=== PATIENT | female | born 1945 | race Caucasian/White ===

== ENCOUNTER 2017-03-26 10:45 | Emergency (ER) | payer OTHER, MEDICARE ==
[2017-03-26 11:03] VITALS: BP 155/80
[2017-03-26] MEDS ORDERED: Sodium Chloride 0.9% 10 ML Syringe FLUSH PRN ×2 (11:31→12:57)
[2017-03-26] MEDS ORDERED: Albuterol 0.083% 2.5 MG/3 ML Neb Soln NEB ONE (11:31)
[2017-03-26] MEDS ORDERED: Sodium Chloride 0.9% 1,000 ML IV ONE (11:32)
--- NOTE | 2017-03-26 11:38 | EDM.PDOC ---
ED HPI GENERAL MEDICAL PROBLEM - General Chief Complaint: Respiratory Problem Stated Complaint: COUGH AND FEVER Time Seen by Provider: 03/26/17 11:22 Source of Information: Reports: Patient History Limitations: Reports: No Limitations - History of Present Illness INITIAL COMMENTS - FREE TEXT/NARRATIVE: Patient is a 71-year-old female presents ED complaining of headache, sinus congestion, postnasal drip, and productive cough with fever for the past week. Patientstates symptoms have progressively worsened. Appetite and fluid intake has been poor. She has been mildly short of breath with coughing fits. She denies any recent sick exposure. Denies any nausea/vomiting, chest pain, abdominal pain, dysuria. She does become mildly dizzy with standing but notes non-syncopal or presyncopal episodes. Patient does smoke one pack per day. She has been utilizing [id number] cough and flu medications with minimal relief. Onset Date: 03/19/17 Duration: Constant, Getting Worse, Waxing/Waning Associated Symptoms: Reports: cough w sputum, Fever/Chills, Loss of Appetite, Malaise, Shortness of Breath. 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 (see below) (See HPI) Left Chest Pain Score (Numeric/FACES): 5 - Related Data Allergies Allergy/AdvReac Type Severity Reaction Status Date / Time banana Allergy Anaphylactic Verified 03/26/17 11:03 Shock coconut Allergy Anaphylactic Verified 03/26/17 11:03 Shock pregabalin [From Lyrica] Allergy Rash Verified 03/26/17 11:03 Home Meds: Home Meds Aspirin 1 tab PO DAILY 03/26/17 [History] Benzonatate [Tessalon Perles] 100 mg PO BID PRN #20 cap 03/26/17 [Rx] Levofloxacin 500 mg PO QAM #10 tablet 03/26/17 [Rx] Lisinopril 5 mg PO DAILY 03/26/17 [History] Prednisone [IMW: predniSONE] 40 mg PO WITHBREAKFAST #10 tab 03/26/17 [Rx] Propranolol [Inderal LA] 60 mg PO DAILY 03/26/17 [History] Rosuvastatin [Crestor] 10 mg PO DAILY 03/26/17 [History] Past Medical History Cardiovascular History: Reports: High Cholesterol, Hypertension Musculoskeletal History: Reports: Other (See Below) Other Musculoskeletal History: 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 Neurological History: Reports: Parkinson's, Other (See Below) Other Neuro History: fibromyalgia Hematologic History: Reports: Other (See Below) Other Hematologic History: vitamin d deficiency Social & Family History - Tobacco Use Smoking Status *Q: Current Every Day Smoker Years of Tobacco use: 12 Packs/Tins Daily: 1 - Caffeine Use Caffeine Use: Reports: Coffee - Alcohol Use Days Per Week of Alcohol Use: 7 Number of Drinks Per Day: 3 Total Drinks Per Week: 21 - Recreational Drug Use Recreational Drug Use: No ED ROS GENERAL - Review of Systems Review Of Systems: See Below Constitutional: Reports: Fever, Chills, Malaise, Weakness, Decreased Appetite HEENT: Reports: Rhinitis, Sinus Problem Respiratory: Reports: Shortness of Breath, Cough, Sputum. Denies: Pleuritic Chest Pain, Hemoptysis Cardiovascular: Reports: Dyspnea on Exertion. Denies: Chest Pain, Palpitations GI/Abdominal: Reports: Decreased Appetite. Denies: Abdominal Pain, Diarrhea, Nausea, Vomiting : Denies: Dysuria Musculoskeletal: Denies: Muscle Pain Neurological: Reports: Dizziness, Headache ED EXAM, GENERAL - Physical Exam Exam: See Below Exam Limited By: No Limitations General Appearance: Alert, WD/WN, No Apparent Distress, Cachetic Eye Exam: Bilateral Eye: PERRL Ears: Hearing Grossly Normal Nose: Normal Inspection Throat/Mouth: Normal Oropharynx, Normal Voice Head: Atraumatic, Normocephalic Neck: Normal Inspection, Supple, Non-Tender, Full Range of Motion. No: Lymphadenopathy (L), Lymphadenopathy (R) Respiratory/Chest: No Respiratory Distress, No Accessory Muscle Use, Chest Non- Tender, Rhonchi (Throughout), Wheezing (Throughout) Cardiovascular: Normal Peripheral Pulses, Regular Rate, Rhythm Peripheral Pulses: 2+: Radial (L), Radial (R) GI/Abdominal: Normal Bowel Sounds, Soft, Non-Tender, No Organomegaly, No Mass Extremities: Normal Inspection Neurological: Alert, Oriented, CN II-XII Intact, Normal Cognition Psychiatric: Normal Affect, Normal Mood Skin Exam: Warm, Dry, Intact, Normal Color Course - Vital Signs Last Recorded V/S: Last Vital Signs Temp 98.7 F 03/26/17 10:58 Pulse 123 H 03/26/17 10:58 Resp 20 03/26/17 10:58 BP 155/80 H 03/26/17 10:58 Pulse Ox 97 03/26/17 12:01 - Orders/Labs/Meds Orders: Active Orders 24 hr Category Date Time Status Peripheral IV Care [RC] . DIRECTED Care 03/26/17 11:31 Active RT Aerosol Therapy [RC] ASDIRECTED Care 03/26/17 11:31 Active Chest 2V [CR] Stat Exams 03/26/17 11:31 Taken Chest w Cont [CT] Stat Exams 03/26/17 12:28 Taken Sodium Chloride 0.9% [Saline Flush] Med 03/26/17 11:31 Active 10 ml FLUSH ASDIRECTED PRN Sodium Chloride 0.9% [Saline Flush] Med 03/26/17 12:57 Active 10 ml FLUSH ONETIME PRN Peripheral IV Insertion Adult [OM.PC] Stat Oth 03/26/17 11:31 Ordered Medication Orders Sodium Chloride (Saline Flush) 10 ml FLUSH ASDIRECTED PRN PRN Reason: Keep Vein Open Last Admin: 03/26/17 12:10 Dose: 10 ml Sodium Chloride (Saline Flush) 10 ml FLUSH ONETIME PRN PRN Reason: IV FLUSH Last Admin: 03/26/17 13:33 Dose: 10 ml Labs: Laboratory Tests 03/26/17 03/26/17 Range/Units 11:53 11:53 WBC 12.54 H (3.98-10.04) K/mm3 RBC 3.72 L (3.98-5.22) M/mm3 Hgb 12.9 (11.2-15.7) gm/L Hct 37.0 (34.1-44.9) % MCV 99.5 H (79.4-94.8) fl MCH 34.7 H (25.6-32.2) pg MCHC 34.9 (32.2-35.5) g/dl RDW Std Deviation 46.3 (36.4-46.3) fL Plt Count 296 (182-369) K/mm3 MPV 9.8 (9.4-12.3) fl Neut % (Auto) 64.0 (34.0-71.1) % Lymph % (Auto) 20.9 (19.3-51.7) % [place] % (Auto) 10.1 (4.7-12.5) % Eos % (Auto) 1.0 (0.7-5.8) Baso % (Auto) 3.0 H (0.1-1.2) % Neut # (Auto) 8.03 H (1.56-6.13) K/mm3 Lymph # (Auto) 2.62 (1.18-3.74) K/mm3 [place] # (Auto) 1.27 H (0.24-0.36) K/mm3 Eos # (Auto) 0.12 (0.04-0.36) K/mm3 Baso # (Auto) 0.37 H (0.01-0.08) K/mm3 Manual Slide Review Abnormal smear Sodium 127 L (136-145) mEq/L Potassium 3.5 (3.5-5.1) mEq/L Chloride 88 L (98-107) mEq/L Carbon Dioxide 27 (21-32) mEq/L Anion Gap 15.5 H (5-15) BUN 8 (7-18) mg/dL Creatinine 0.7 (0.55-1.02) mg/dL Est Cr Clr Drug Dosing 54.37 mL/min Estimated GFR (MDRD) > 60 (>60) mL/min BUN/Creatinine Ratio 11.4 L (14-18) Glucose 84 (83-115) mg/dL Calcium 8.7 (8.5-10.1) mg/dL Total Bilirubin 0.5 (0.2-1.0) mg/dL AST 22 (15-37) U/L ALT 17 (14-59) U/L Alkaline Phosphatase 116 (46-116) U/L C-Reactive Protein 22.7 H* (<1.0) mg/dL Total Protein 7.6 (6.4-8.2) g/dl Albumin 2.7 L (3.4-5.0) g/dl Globulin 4.9 gm/dL Albumin/Globulin Ratio 0.6 L (1-2) Meds: Medications Generic Name Dose Route Start Last Admin Trade Name Freq PRN Reason Stop Dose Admin Sodium Chloride 10 ml 03/26/17 11:31 03/26/17 12:10 Saline Flush FLUSH 10 ml ASDIRECTED PRN Administration Keep Vein Open Sodium Chloride 10 ml 03/26/17 12:57 03/26/17 13:33 Saline Flush FLUSH 10 ml ONETIME PRN Administration IV FLUSH Discontinued Medications Generic Name Dose Route Start Last Admin Trade Name Laurence PRN Reason Stop Dose Admin Albuterol 2.5 mg 03/26/17 11:31 03/26/17 12:01 Proventil Neb Soln NEB 03/26/17 11:32 2.5 mg ONETIME ONE Administration Sodium Chloride 1,000 mls @ 999 mls/hr 03/26/17 11:32 03/26/17 12:10 Normal Saline IV 03/26/17 12:32 999 mls/hr ONETIME ONE Administration Iopamidol 100 ml 03/26/17 12:57 03/26/17 13:33 Isovue-300 (61%) IVPUSH 03/26/17 12:58 60 ml ONETIME ONE Administration Levofloxacin 500 mg 03/26/17 13:07 03/26/17 13:14 Levaquin PO 03/26/17 13:08 500 mg ONETIME ONE Administration Prednisone 40 mg 03/26/17 13:05 03/26/17 13:14 Prednisone PO 03/26/17 13:06 40 mg ONETIME ONE Administration - Re-Assessments/Exams Free Text/Narrative Re-Assessment/Exam: Peripheral IV with normal saline [id number] albuterol and Atrovent times one. Initial labs and studies include CBC, chem 14, CRP, and chest x-ray. 03/26/17 12:29 Labs reviewed:sodium 127, potassium 3.5, creatinine 0.7, CRP22.7, white blood cell count 12.5, neutrophil percent is 64, neutrophil number a 0.03, hemoglobin 12.9. CXR reviewed: hyperinflation with multiple lung nodules which appear to be small granulomas. Patient is a long-time smoker thus we'll get a CT with IV contrast. 03/26/17 13:07 Prednisone 40 mg p.o. and levofloxacin 500 mg p.o. patient history COPD and is concerned about Pseudomonas infection. 03/26/17 13:09 03/26/17 14:22 Awaiting results of the CT study of the chest. 03/26/17 14:28 CT study of the chest impression small left pleural effusion. Lingular pneumonia. Impacted small airways bilaterally, most likely infectious in etiology. Followup recommended. Discussed lab results and CT chest with patient and family. They're wishing to be discharged home and not admitted to the hospital. Discharge instructions as documented with prescriptions as provided. Per CURB 65 score patient is low risk group, 2.7% 30 day mortality. Departure - Departure Time of Disposition: 14:40 Disposition: Home, Self-Care 01 Condition: good Clinical Impression: COPD with exacerbation, Lingular pneumonia - Discharge Information Prescriptions: Benzonatate [Tessalon Perles] 100 mg PO BID PRN #20 cap PRN Reason: Cough Levofloxacin 500 mg PO QAM #10 tablet Prednisone [IMW: predniSONE] 40 mg PO WITHBREAKFAST #10 tab Instructions: Upper Respiratory Infection, Adult, [id number], Chronic Obstructive Pulmonary Disease Exacerbation, [id number], Acute Bronchitis, Easy -to-Read, Shortness of Breath, [id number] Referrals: Vinita Wheatley MD [Primary Care Provider] - 2 Days Forms: ED Department Discharge Additional Instructions: As discussed CT of the chest revealed you have lingula pneumonia. Treatment is albuterol inhaler one to 2 puffs every 4 hours as needed for shortness of breath /cough, prednisone 40 mg every a.m. for 5 days, Levaquin 500 mg every a.m. for 10 days, and Tessalon Perles 100 mg twice a day for cough. Push the fluids. Ensure adequate rest. Can utilize mucinex 600 mg twice a day for 10 days. Followup with primary care provider this coming Tuesday/Tuesday for reevaluation. Return back to the ED if you experience any new or worsening symptoms as discussed. - My Orders Last 24 Hours: My Active Orders 03/26/17 11:31 Peripheral IV Care [RC] . DIRECTED RT Aerosol Therapy [RC] ASDIRECTED Chest 2V [CR] Stat Sodium Chloride 0.9% [Saline Flush] 10 ml FLUSH ASDIRECTED PRN Peripheral IV Insertion Adult [OM.PC] Stat 03/26/17 12:28 Chest w Cont [CT] Stat 03/26/17 12:57 Sodium Chloride 0.9% [Saline Flush] 10 ml FLUSH ONETIME PRN - Assessment/Plan Last 24 Hours: My Active Orders 03/26/17 11:31 Peripheral IV Care [RC] . DIRECTED RT Aerosol Therapy [RC] ASDIRECTED Chest 2V [CR] Stat Sodium Chloride 0.9% [Saline Flush] 10 ml FLUSH ASDIRECTED PRN Peripheral IV Insertion Adult [OM.PC] Stat 03/26/17 12:28 Chest w Cont [CT] Stat 03/26/17 12:57 Sodium Chloride 0.9% [Saline Flush] 10 ml FLUSH ONETIME PRN
[2017-03-26] MEDS ORDERED: Iopamidol 612 MG/ML 100 ML Bottle IVPUSH ONE (12:57)
[2017-03-26] MEDS ORDERED: predniSONE 20 MG Tab PO ONE (13:05)
[2017-03-26] MEDS ORDERED: Levofloxacin 250 MG Tab PO ONE (13:07)
--- NOTE | 2017-03-28 08:03 | CT ---
CT chest Technique: Multiple axial sections were obtained from above the lung apices inferiorly through the lung bases. Intravenous contrast was utilized. Comparison: Previous chest x-ray performed earlier on 03/26/17. Findings: Multiple low density nodules are identified within the thyroid gland. Small left sided pleural effusion is seen. Calcified granulomas are seen within both lungs. Mild atelectasis is seen adjacent to the pleural effusion within the left lung base. Parenchymal density is seen adjacent to the right minor fissure and adjacent to the pleural margin within the right middle lobe. Minimal area of pneumonia is possible. Parenchymal density is noted within the lingula possibly due to small area of additional pneumonia. Other minimal parenchymal densities noted within the superior segment right lower lung as well as several areas within the right upper lung. Visualized upper abdominal structures are within normal limits. Atherosclerotic change is noted within the aorta as well as mild coronary artery calcification. Mediastinum and hilar regions show no adenopathy or mass. No axillary adenopathy is seen. Slight emphysematous change is present. Bone window settings were reviewed showing slight degenerative change throughout the spine. Impression: 1. Small left-sided pleural effusion. 2. Small parenchymal infiltrates within both lungs possibly infectious in etiology. Recommend treatment as a pneumonia and recommend follow-up noncontrast chest CT in 2 months to make sure findings resolve. 3. Incidental calcified granulomas. 4. Multiple low density nodules within both lobes of the thyroid gland. Findings most likely due to multinodular goiter. Diagnostic code #3 I agree with preliminary report issued by [employer] ([facility] report finalized on 03/26/17, 3:27 PM Central Time)
--- NOTE | 2017-03-28 08:03 | CR ---
Chest: Two views of the chest were obtained. Comparison: No previous study. Mild increased density noted within the lingula. Lungs otherwise are clear but hyperinflated. Several nodules are seen within the chest compatible with granulomas. Heart size and mediastinum are normal. Previous cervical spine surgery is seen. Impression: 1. Increased density within the lingula most likely representing small area of pneumonia. 2. Emphysematous change and scattered granulomas. Diagnostic code #3
== END 2017-03-26 14:48 | disposition home or self-care (01) ==
LOC: JD.ED 10:45
DX: J18.9 Pneumonia, unspecified organism (principal); J44.1 Chronic obstructive pulmonary disease with (acute) exacerbation; I10 Essential (primary) hypertension; E78.00 Pure hypercholesterolemia, unspecified; G20 Parkinson's disease; F17.210 Nicotine dependence, cigarettes, uncomplicated; Z79.82 Long term (current) use of aspirin; Z79.899 Other long term (current) drug therapy; Z88.8 Allergy status to other drugs, medicaments and biological substances; Z91.018 Allergy to other foods
CPT/HCPCS: 36415; 71020; 71260; 80053; 85025; 86140; 94664; 96360; 99284; A9270; J7040; J7050; Q9967

== ENCOUNTER 2018-04-28 09:06 | Emergency (ER) | payer MEDICARE, OTHER ==
[2018-04-28 09:19] VITALS: BP 182/83
--- NOTE | 2018-04-28 09:56 | EDM.PDOC ---
ED HPI GENERAL MEDICAL PROBLEM - General Chief Complaint: Upper Extremity Injury/Pain Stated Complaint: SHOULDER AND BACK INJURY Time Seen by Provider: 04/28/18 09:39 Source of Information: Reports: Patient, Family (Daughter) History Limitations: Reports: No Limitations - History of Present Illness INITIAL COMMENTS - FREE TEXT/NARRATIVE: The patient states that she fell at home on the evening of 04/26/2018. She states that her legs just gave out. She landed on a carpet and was not injured, but on the morning of 04/27/2018, she developed right deltoid pain. Last night she felt pain in her right scapula. She applied a [place] 4% transdermal patch, which she states has not helped much. She also took 400 mg of ibuprofen last night, but none since. The patient states that she has had right shoulder pain in the past, although has not previously had a medical evaluation of it. The patient's daughter states that the patient falls a lot, related to possible Parkinson disease. The patient's PCP is Dr. Vinita Wheatley, who has not been contacted about this issue. Right Shoulder Pain Score (Numeric/FACES): 9 - Related Data Allergies Allergy/AdvReac Type Severity Reaction Status Date / Time banana Allergy Anaphylactic Verified 12/23/17 13:59 Shock coconut Allergy Anaphylactic Verified 12/23/17 13:59 Shock minocycline [From Minocin] Allergy Rash Verified 12/23/17 13:59 pregabalin [From Lyrica] Allergy Rash Verified 12/23/17 13:59 rosuvastatin Allergy Cannot Verified 12/23/17 13:59 Remember Home Meds: Home Meds Aspirin 81 mg PO DAILY 03/26/17 [History] Gabapentin [Neurontin] 300 mg PO BEDTIME 12/23/17 [History] Ibuprofen 200 mg PO ASDIRECTED PRN 12/23/17 [History] Melatonin 3 mg PO BEDTIME PRN 12/23/17 [History] OLANZapine [ZyPREXA] 5 mg PO BEDTIME 12/23/17 [History] Orphenadrine [Norflex] 1 tab PO Q12H PRN #14 tab.er 04/28/18 [Rx] Past Medical History Cardiovascular History: Reports: High Cholesterol, Hypertension Gastrointestinal History: Reports: Colon Polyp Genitourinary History: Reports: Acute Renal Failure, Urinary Incontinence ( stress incontinence) Musculoskeletal History: Reports: Arthritis Neurological History: Reports: Neuropathy, Peripheral, Parkinson's (suspected) Psychiatric History: Reports: Depression (untreated), Other (See Below) ( Fibromyalgia, Chronic pain) Endocrine/Metabolic History: Reports: Osteopenia, Vitamin D Deficiency Hematologic History: Reports: Anemia Oncologic (Cancer) History: Reports: Uterine - Past Surgical History HEENT Surgical History: Reports: Cataract Surgery, Oral Surgery GI Surgical History: Reports: Appendectomy, Colonoscopy, EGD, Other (See Below) (Hemorrhoidectomy) Female Surgical History: Reports: D&C (x 1), Hysterectomy, Salpingo- Oophorectomy Neurological Surgical History: Reports: C-Spine (ACDF C5-C7), Lumbar Spine ( fusion) Social & Family History - Tobacco Use Smoking Status *Q: Current Every Day Smoker Years of Tobacco use: 60 Packs/Tins Daily: 1 Packs/Tins Daily Comment: Down from 3 ppd - Caffeine Use Caffeine Use: Reports: Coffee - Alcohol Use Alcohol Use History: Yes Alcohol Use Frequency: Socially - Recreational Drug Use Recreational Drug Use: No - Living Situation & Occupation Living situation: Reports: , with Family (Daughter) Occupation: Retired Review of Systems - Review of Systems Review Of Systems: ROS reveals no pertinent complaints other than HPI. GI/Abdominal: Reports: Diarrhea (chronic) ED EXAM, GENERAL - Physical Exam Exam: See Below Exam Limited By: No Limitations General Appearance: Alert, WD/WN, No Apparent Distress Eye Exam: Bilateral Eye: EOMI, Normal Inspection Ears: Normal External Exam Nose: Normal Inspection Throat/Mouth: Normal Inspection, Normal Lips, Normal Voice, No Airway Compromise Head: Atraumatic, Normocephalic Neck: Normal Inspection, Full Range of Motion Respiratory/Chest: No Respiratory Distress, Lungs Clear, Normal Breath Sounds, No Accessory Muscle Use Cardiovascular: Normal Peripheral Pulses, Regular Rate, Rhythm, No Gallop, No JVD, No Murmur, No Rub Peripheral Pulses: 4+: Radial (L), Radial (R) GI/Abdominal: Normal Bowel Sounds, Soft, Non-Tender, No Organomegaly, No Distention, No Abnormal Bruit, No Mass (Female) Exam: Deferred Rectal (Female) Exam: Deferred Back Exam: Normal Inspection, Full Range of Motion, NT Extremities: Other (No visible abnormality to the patient's right shoulder, such as swelling, erythema, ecchymosis or abrasion. The patient reports tenderness to palpation to the entire shoulder - anterior, superior, posterior, and lateral. She reports pain in her right scapula with attempts at flexion, extension, external rotation and internal rotation of the right upper extremity against resistance, although no significant pain with attempts at abduction or adduction against resistance. The patient is able to raise her right upper extremity above her head on her own.) Neurological: Alert, Oriented, Normal Cognition, No Motor/Sensory Deficits Psychiatric: Normal Affect Skin Exam: Warm, Dry, Intact, Normal Color, No Rash Course - Vital Signs Last Recorded V/S: Last Vital Signs Temp 36.3 C 04/28/18 09:13 Pulse 97 04/28/18 09:13 Resp 13 04/28/18 09:13 BP 182/83 H 04/28/18 09:13 Pulse Ox 98 04/28/18 09:13 - Orders/Labs/Meds Meds: Medications Discontinued Medications Generic Name Dose Route Start Last Admin Trade Name Freq PRN Reason Stop Dose Admin Orphenadrine Citrate 100 mg 04/28/18 10:31 04/28/18 10:42 Norflex PO 04/28/18 10:32 100 mg ONETIME STA Administration - Re-Assessments/Exams Free Text/Narrative Re-Assessment/Exam: 04/28/18 10:26 3-view radiographs of the right shoulder appear to be grossly unremarkable. No fracture identified. Formal read per the Radiologist pending. 2-view radiographs of the right scapula appear to be grossly unremarkable. No fracture identified. Formal read per the Radiologist pending. 04/28/18 10:32 X-ray results discussed with the patient and her daughter. I have ordered a single dose of Norflex, and will discharge the patient home with a 7-day prescription. I would like the patient to continue to take ibuprofen 400-600 mg every 8 hours with food. I am recommending that the patient perform passive range of motion of the right shoulder, and I will refer her to Dr. Christensen. Departure - Departure Time of Disposition: 10:33 Disposition: Home, Self-Care 01 Condition: Good Clinical Impression: Right shoulder pain - Discharge Information Prescriptions: Orphenadrine [Norflex] 1 tab PO Q12H PRN #14 tab.er PRN Reason: Muscle Spasm Instructions: Shoulder Pain Referrals: Vinita Wheatley MD [Primary Care Provider] - Mode Christensen MD [Physician] - Forms: ED Department Discharge Additional Instructions: You were seen in the emergency room for right shoulder pain, after falling at home on 04/26/2018. Workup in the ER included x-rays of your right shoulder and right scapula, which returned unremarkable. There are no broken bones or dislocations. Based on your history and physical examination, you have likely strained a muscle in the shoulder, however, it is also possible that you have a tendinous or ligamentous injury. You have been started on the muscle relaxant Norflex. A prescription for Norflex has been sent to the [facility], located in the [facility] grocery store. Take one tablet every 12 hours, as prescribed. Continue to take [id number] ibuprofen, 2-3 tablets (400-600 mg) every 8 hours, with food, as needed for pain. It is important that you not let your shoulder stay immobile. Perform passive range of motion, as was treated in the ER, by leaning forward, letting her arm pain, then swinging it with your body weight. Alternatively, you can perform "wall walking" with your hand, or have your daughter move your arm around while you relax your muscles. Follow-up with the Orthopedic Surgeon Dr. Christensen at the next available appointment. If any other problems, please do not hesitate to return to the ER.
[2018-04-28] MEDS ORDERED: Orphenadrine 100 MG Tab.ER PO STA (10:31)
--- NOTE | 2018-05-01 09:26 | CR ---
Scapula: Two views of the scapula were obtained. Small calcification is seen off the inferior glenoid which is felt to be incidental. No acute fracture or other bony abnormality is seen. Impression: 1. Incidental finding. Right scapula study is otherwise unremarkable. Diagnostic code #2
--- NOTE | 2018-05-01 11:15 | CR ---
Right shoulder: Three views of the right shoulder were obtained. Comparison: No prior shoulder exam. Acromioclavicular and glenohumeral joints appear within normal limits. Previous cervical spine surgery is noted. No acute fracture or dislocation is seen. Bony structures are slightly osteopenic. Impression: 1. Prior cervical spine surgery. 2. Nothing acute is seen on three-view right shoulder study. Diagnostic code #2
== END 2018-04-28 10:58 | disposition home or self-care (01) ==
LOC: JD.ED 09:06
DX: M25.511 Pain in right shoulder (principal); E78.00 Pure hypercholesterolemia, unspecified; I10 Essential (primary) hypertension; F17.210 Nicotine dependence, cigarettes, uncomplicated; Z91.018 Allergy to other foods; Z88.1 Allergy status to other antibiotic agents; Z88.8 Allergy status to other drugs, medicaments and biological substances; Z79.82 Long term (current) use of aspirin; Z79.899 Other long term (current) drug therapy
CPT/HCPCS: 73010; 73030; 99283; A9270

== ENCOUNTER 2018-06-26 09:10 | Emergency (ER) | payer MEDICARE, OTHER ==
[2018-06-26] MEDS ORDERED: HYDROmorphone 0.5 MG/0.5 ML SYRINGE IVPUSH ONE (10:04)
[2018-06-26] MEDS ORDERED: Sodium Chloride 0.9% 10 ML Syringe FLUSH PRN (10:04)
[2018-06-26] MEDS ORDERED: methylPREDNISolone Sodium Succinate 125 MG/2 ML SDV IVPUSH ONE (10:04)
--- NOTE | 2018-06-26 11:04 | EDM.PDOC ---
ED HPI GENERAL MEDICAL PROBLEM - General Chief Complaint: Lower Extremity Injury/Pain Stated Complaint: RIGHT HIP PAIN Time Seen by Provider: 06/26/18 09:54 Source of Information: Reports: Patient, Family History Limitations: Reports: No Limitations - History of Present Illness INITIAL COMMENTS - FREE TEXT/NARRATIVE: The patient presents with right hip pain. This has been bothering her for months. She says the past 3 days have been much worse. She has had 3 surgeries on her back but this pain is different. She has fallen before but not recently. She did not hurt her hip when she did fall. She has no other complaints such as fever, chills, cough, chest pain, shortness of breath, abdominal pain, nausea or vomiting. Onset: Gradual Duration: Day(s): (3) Location: Reports: Lower Extremity, Right (hip) Quality: Reports: Sharp Severity: Severe Improves with: Reports: Immobilization Worsens with: Reports: Movement Associated Symptoms: Reports: No Other Symptoms Right Hip Pain Score (Numeric/FACES): 10 - Related Data Allergies Allergy/AdvReac Type Severity Reaction Status Date / Time banana Allergy Anaphylactic Verified 06/26/18 09:36 Shock coconut Allergy Anaphylactic Verified 06/26/18 09:36 Shock minocycline [From Minocin] Allergy Rash Verified 06/26/18 09:36 pregabalin [From Lyrica] Allergy Rash Verified 06/26/18 09:36 rosuvastatin Allergy Cannot Verified 06/26/18 09:36 Remember Home Meds: Home Meds Aspirin 81 mg PO DAILY 03/26/17 [History] Gabapentin [Neurontin] 300 mg PO BEDTIME 12/23/17 [History] Ibuprofen 200 mg PO ASDIRECTED PRN 12/23/17 [History] Melatonin 3 mg PO BEDTIME PRN 12/23/17 [History] OLANZapine [ZyPREXA] 5 mg PO BEDTIME 12/23/17 [History] Orphenadrine [Norflex] 1 tab PO Q12H PRN #14 tab.er 04/28/18 [Rx] Hydrocodone/Acetaminophen [Hydrocodon-Acetaminophen 5-325] 1 - 2 each PO Q6HR PRN #20 tablet 06/26/18 [Rx] Past Medical History HEENT History: 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 Cardiovascular History: Reports: High Cholesterol, Hypertension Other Cardiovascular History: palpitations Respiratory History: Reports: COPD Gastrointestinal History: Reports: Colon Polyp Other Gastrointestinal History: hematochezia, rectal bleeding, gastroenteritis Genitourinary History: Reports: Acute Renal Failure, Urinary Incontinence Other Genitourinary History: acute kidney injury 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: 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 Musculoskeletal History: Reports: Arthritis Other Musculoskeletal History: 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, chronic pain Neurological History: Reports: Neuropathy, Peripheral, Parkinson's Other Neuro History: syncope, parkinsons tremor, lumbar back surgery, c5-c7 fusion Psychiatric History: Reports: Depression, Other (See Below) Endocrine/Metabolic History: Reports: Osteopenia, Vitamin D Deficiency Other Endocrine/Metabolic History: vitamin b deficiency Hematologic History: Reports: Anemia Other Hematologic History: vitamin d deficiency Immunologic History: 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 Oncologic (Cancer) History: Reports: Uterine Dermatologic History: 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 - Past Surgical History Head Surgeries/Procedures: 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 HEENT Surgical History: Reports: Cataract Surgery, Oral Surgery Respiratory Surgical History: 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 GI Surgical History: Reports: Appendectomy, Colonoscopy, EGD, Other (See Below) Female Surgical History: Reports: D&C, Hysterectomy, Salpingo-Oophorectomy Neurological Surgical History: Reports: C-Spine, Lumbar Spine Dermatological Surgical History: 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 Social & Family History - Tobacco Use Smoking Status *Q: Current Every Day Smoker Years of Tobacco use: 60 Packs/Tins Daily: 1 - Caffeine Use Caffeine Use: Reports: Coffee - Alcohol Use Days Per Week of Alcohol Use: 7 Number of Drinks Per Day: 2 Total Drinks Per Week: 14 - Recreational Drug Use Recreational Drug Use: No - Living Situation & Occupation Living situation: Reports: , with Family (Daughter) Occupation: Retired Review of Systems - Review of Systems Review Of Systems: See Below Constitutional: Reports: No Symptoms Eyes: Reports: No Symptoms Ears: Reports: No Symptoms Nose: Reports: No Symptoms Mouth/Throat: Reports: No Symptoms Respiratory: Reports: No Symptoms Cardiovascular: Reports: No Symptoms GI/Abdominal: Reports: No Symptoms Genitourinary: Reports: No Symptoms Musculoskeletal: Reports: Other (Right hip pain) Skin: Reports: No Symptoms ED EXAM, GENERAL - Physical Exam Exam: See Below Exam Limited By: No Limitations General Appearance: Alert, No Apparent Distress Ears: Normal External Exam Nose: Normal Inspection Head: Atraumatic, Normocephalic Neck: Normal Inspection Respiratory/Chest: No Respiratory Distress, Lungs Clear, Normal Breath Sounds Cardiovascular: Regular Rate, Rhythm, No Edema, No Murmur GI/Abdominal: Soft, Non-Tender, No Organomegaly, No Mass Back Exam: Normal Inspection Extremities: Other (Right hip pain upon palpation. Good sensation and pulses distally. Pain with internal and external rotation.) Course - Vital Signs Last Recorded V/S: Last Vital Signs Temp 98.5 F 06/26/18 09:34 Pulse 120 H 06/26/18 09:34 Resp 18 06/26/18 09:34 BP 164/83 H 06/26/18 09:34 Pulse Ox 92 L 06/26/18 09:34 - Orders/Labs/Meds Orders: Active Orders 24 hr Category Date Time Status Peripheral IV Care [RC] . DIRECTED Care 06/26/18 10:04 Active Hip Min 2V or 3V w Pelvis Rt [CR] Stat Exams 06/26/18 10:05 Taken Sodium Chloride 0.9% [Saline Flush] Med 06/26/18 10:04 Active 10 ml FLUSH ASDIRECTED PRN Peripheral IV Insertion Adult [OM.PC] Routine Oth 06/26/18 10:04 Ordered Medication Orders Sodium Chloride (Saline Flush) 10 ml FLUSH ASDIRECTED PRN PRN Reason: Keep Vein Open Last Admin: 06/26/18 10:40 Dose: 10 ml Meds: Medications Generic Name Dose Route Start Last Admin Trade Name Freq PRN Reason Stop Dose Admin Sodium Chloride 10 ml 06/26/18 10:04 06/26/18 10:40 Saline Flush FLUSH 10 ml ASDIRECTED PRN Administration Keep Vein Open Discontinued Medications Generic Name Dose Route Start Last Admin Trade Name Freq PRN Reason Stop Dose Admin Hydromorphone HCl 0.5 mg 06/26/18 10:04 06/26/18 10:35 Dilaudid IVPUSH 06/26/18 10:05 0.5 mg ONETIME ONE Administration Methylprednisolone Sodium Succinate 125 mg 06/26/18 10:04 06/26/18 10:38 Solu-Medrol IVPUSH 06/26/18 10:05 125 mg ONETIME ONE Administration - Re-Assessments/Exams Free Text/Narrative Re-Assessment/Exam: 06/26/18 11:03 I ordered an IV saline lock, dilaudid 0.5mg IV, solu-medrol 125mg IV, and an x- ray of her hip. The x-ray shows some arthritis. 06/26/18 11:10 I will discharge her home and have her follow up with Dr Christensen. Departure - Departure Time of Disposition: 11:10 Disposition: Home, Self-Care 01 Condition: Good Clinical Impression: Right hip pain Osteoarthritis of right hip Qualifiers: Osteoarthritis type: primary Qualified Code(s): M16.11 - Unilateral primary osteoarthritis, right hip - Discharge Information *PRESCRIPTION DRUG MONITORING PROGRAM REVIEWED*: No *COPY OF PRESCRIPTION DRUG MONITORING REPORT IN PATIENT [place]: No Prescriptions: Hydrocodone/Acetaminophen [Hydrocodon-Acetaminophen 5-325] 1 - 2 each PO Q6HR PRN #20 tablet PRN Reason: Pain Referrals: Vinita Wheatley MD [Primary Care Provider] - Mode Christensen MD [Physician] - 2 Weeks Forms: ED Department Discharge Additional Instructions: Take your medicine as prescribed. You may also try a hydrocodone for pain. Follow up with Dr Christensen our orthopedic surgeon. Please return if you are worse. - My Orders Last 24 Hours: My Active Orders 06/26/18 10:04 Peripheral IV Care [RC] . DIRECTED Sodium Chloride 0.9% [Saline Flush] 10 ml FLUSH ASDIRECTED PRN Peripheral IV Insertion Adult [OM.PC] Routine 06/26/18 10:05 Hip Min 2V or 3V w Pelvis Rt [CR] Stat - Assessment/Plan Last 24 Hours: My Active Orders 06/26/18 10:04 Peripheral IV Care [RC] . DIRECTED Sodium Chloride 0.9% [Saline Flush] 10 ml FLUSH ASDIRECTED PRN Peripheral IV Insertion Adult [OM.PC] Routine 06/26/18 10:05 Hip Min 2V or 3V w Pelvis Rt [CR] Stat
[2018-06-26 11:24] VITALS: BP 153/79
--- NOTE | 2018-06-27 12:33 | CR ---
Pelvis and right hip: AP view of the pelvis was obtained as well as AP and frog-leg lateral views of the right hip. Comparison: No previous study. Joint spaces within both hips are maintained. Joint space narrowing is seen within the right sacroiliac joint. Previous lower lumbar spine surgery is noted. Small calcification is noted above the greater trochanter of the right hip which is incidental. No fracture or other bony abnormality is seen. Impression: 1. Joint space narrowing within the right sacroiliac joint. 2. Other incidental findings. Diagnostic code #2
== END 2018-06-26 11:25 | disposition home or self-care (01) ==
LOC: JD.ED 09:10
DX: M16.11 Unilateral primary osteoarthritis, right hip (principal); F17.210 Nicotine dependence, cigarettes, uncomplicated; I10 Essential (primary) hypertension; E78.00 Pure hypercholesterolemia, unspecified; F32.9 Major depressive disorder, single episode, unspecified; Z79.82 Long term (current) use of aspirin; Z79.899 Other long term (current) drug therapy; Z91.018 Allergy to other foods; Z88.8 Allergy status to other drugs, medicaments and biological substances
CPT/HCPCS: 73502; 96374; 96375; 99284; J1170; J2930; J7050

== ENCOUNTER 2018-10-24 11:42 | Emergency (ER) | payer MEDICARE, OTHER ==
[2018-10-24 12:00] VITALS: BP 133/64
[2018-10-24] MEDS ORDERED: Ketorolac 30 MG/ML SDV IM ONE (12:20)
--- NOTE | 2018-10-24 12:25 | EDM.PDOC ---
ED HPI GENERAL MEDICAL PROBLEM - General Chief Complaint: Flank Pain Stated Complaint: L SIDE PAIN DUE TO FALL Time Seen by Provider: 10/24/18 11:59 Source of Information: Reports: Patient, RN Notes Reviewed History Limitations: Reports: No Limitations - History of Present Illness INITIAL COMMENTS - FREE TEXT/NARRATIVE: Patient is a 73 year old female who presents to the ED for the evaluation of left sided rib/flank pain after 2 falls last night. She states that she fell at 2200 and 2330 last night. She does use a cane and walker for ambulation. She states that she fell and hit her left side, which resulted in the pain she is experiencing. She has a history of rib fractures in the past. She does think she hit her head, but did not have any LOC or headache. She is not on blood thinners. She states that her pain is a 10/10. This worsens with movement, coughing and deep breathing. She has not taken any medications prior to help relieve this pain. Left Chest Pain Score (Numeric/FACES): 10 - Related Data Allergies Allergy/AdvReac Type Severity Reaction Status Date / Time banana Allergy Anaphylactic Verified 10/24/18 12:01 Shock coconut Allergy Anaphylactic Verified 10/24/18 12:01 Shock minocycline [From Minocin] Allergy Rash Verified 10/24/18 12:01 pregabalin [From Lyrica] Allergy Rash Verified 10/24/18 12:01 rosuvastatin Allergy Cannot Verified 10/24/18 12:01 Remember Home Meds: Home Meds Aspirin 81 mg PO DAILY 03/26/17 [History] Gabapentin [Neurontin] 900 mg PO BEDTIME 12/23/17 [History] Ibuprofen 200 mg PO ASDIRECTED PRN 12/23/17 [History] Melatonin 3 mg PO BEDTIME PRN 12/23/17 [History] OLANZapine [ZyPREXA] 5 mg PO BEDTIME 12/23/17 [History] Folic Acid 1 mg PO DAILY 10/24/18 [History] Lisinopril 5 mg PO DAILY 10/24/18 [History] Simvastatin 10 mg PO DAILY 10/24/18 [History] clonazePAM [Clonazepam] 1 mg PO BEDTIME PRN 10/24/18 [History] Past Medical History HEENT History: 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 Cardiovascular History: Reports: High Cholesterol, Hypertension Other Cardiovascular History: palpitations Respiratory History: Reports: COPD Gastrointestinal History: Reports: Colon Polyp Other Gastrointestinal History: hematochezia, rectal bleeding, gastroenteritis Genitourinary History: Reports: Acute Renal Failure, Urinary Incontinence Other Genitourinary History: acute kidney injury [employer] History: 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 Musculoskeletal History: Reports: Arthritis Other Musculoskeletal History: 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, chronic pain Neurological History: Reports: Neuropathy, Peripheral, Parkinson's Other Neuro History: syncope, parkinsons tremor, lumbar back surgery, c5-c7 fusion Psychiatric History: Reports: Depression, Other (See Below) Endocrine/Metabolic History: Reports: Osteopenia, Vitamin D Deficiency Other Endocrine/Metabolic History: vitamin b deficiency Hematologic History: Reports: Anemia Other Hematologic History: vitamin d deficiency Immunologic History: 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 Oncologic (Cancer) History: Reports: Uterine Dermatologic History: 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 - Past Surgical History Head Surgeries/Procedures: 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 HEENT Surgical History: Reports: Cataract Surgery, Oral Surgery Respiratory Surgical History: 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 GI Surgical History: Reports: Appendectomy, Colonoscopy, EGD, Other (See Below) Female Surgical History: Reports: D&C, Hysterectomy, Salpingo-Oophorectomy Neurological Surgical History: Reports: C-Spine, Lumbar Spine Dermatological Surgical History: 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 Social & Family History - Caffeine Use Caffeine Use: Reports: Coffee - Living Situation & Occupation Living situation: Reports: , with Family (Daughter) Occupation: Retired ED ROS GENERAL - Review of Systems Review Of Systems: See Below Constitutional: Reports: No Symptoms HEENT: Reports: No Symptoms Respiratory: Reports: Other (pain with deep breath) Cardiovascular: Reports: Chest Pain (with deep breath) Endocrine: Reports: No Symptoms GI/Abdominal: Reports: No Symptoms : Reports: No Symptoms Musculoskeletal: Reports: Other (left upper flank pain). Denies: Neck Pain, Back Pain Skin: Reports: No Symptoms Neurological: Reports: No Symptoms Psychiatric: Reports: No Symptoms Hematologic/Lymphatic: Reports: No Symptoms Immunologic: Reports: No Symptoms ED EXAM, GENERAL - Physical Exam Exam: See Below Exam Limited By: No Limitations General Appearance: Alert, WD/WN, No Apparent Distress Ears: Normal External Exam, Normal TMs Nose: Normal Inspection Throat/Mouth: Normal Inspection, Normal Oropharynx, No Airway Compromise Head: Atraumatic, Normocephalic, Facial Tenderness (left forehead tenderness) Neck: Normal Inspection, Supple, Non-Tender, Full Range of Motion Respiratory/Chest: No Respiratory Distress, Lungs Clear, Normal Breath Sounds, No Accessory Muscle Use, Chest Non-Tender Cardiovascular: Normal Peripheral Pulses, Regular Rate, Rhythm, No Murmur GI/Abdominal: Normal Bowel Sounds, Soft, Non-Tender, No Organomegaly, No Distention, No Mass Back Exam: Normal Inspection, Full Range of Motion Extremities: Normal Inspection, Normal Range of Motion, Normal Capillary Refill Neurological: Alert, Oriented, Normal Cognition, Normal Gait, Normal Reflexes, No Motor/Sensory Deficits Psychiatric: Normal Affect, Normal Mood Skin Exam: Warm, Dry, Intact, Normal Color, No Rash Course - Vital Signs Last Recorded V/S: Last Vital Signs Temp 98.3 F 10/24/18 11:56 Pulse 68 10/24/18 11:56 Resp 18 10/24/18 11:56 BP 133/64 10/24/18 11:56 Pulse Ox 92 L 10/24/18 11:56 - Orders/Labs/Meds Orders: Active Orders 24 hr Category Date Time Status Incentive Spirometry [RT Incentive Spirometry] [RC] Care 10/24/18 13:32 Ordered Q1HWA Meds: Medications Discontinued Medications Generic Name Dose Route Start Last Admin Trade Name Freq PRN Reason Stop Dose Admin Ketorolac Tromethamine 30 mg 10/24/18 12:20 10/24/18 12:29 Toradol IM 10/24/18 12:21 30 mg ONETIME ONE Administration - Radiology Interpretation Free Text/Narrative:: CT chest Technique: Multiple axial sections through the chest were obtained. Intravenous contrast was not utilized. Comparison: Prior chest CT of 03/26/17. Findings: Small portion of the visualized upper abdominal structures appear within normal limits. No pericardial thickening is seen. Mild coronary artery calcification is noted. Atherosclerotic calcification is seen within the thoracic aorta. No mediastinal adenopathy is seen. No hilar abnormalities are appreciated. Slight apical blebs are seen. Small nodule is identified within the anterior right upper lung measuring about 2.3 mm in size. This is believed to be present on previous CT study in retrospect and is felt to be stable. Calcified nodule is noted within the right lung base compatible with granuloma measuring 4.5 mm which is stable. Additional calcified nodule is noted within the left lung base measuring 6 mm. 2 calcified nodules are noted within the superior segment of the left lower lung measuring 4 mm and 3 mm. No additional nodule is seen. Lungs otherwise are clear. No pulmonary contusion or pleural effusions are seen. No pneumothorax is seen. Bone window settings were reviewed in bone window setting shows no discrete acute rib fracture. Minimal rib deformity is seen within several ribs on both sides compatible with old healed fractures. Scattered degenerative change within the thoracic spine is seen. Nothing acute is seen within the thoracic spine. Impression: 1. Findings compatible with scattered old healed rib fractures. No acute rib fracture is seen. 2. Multiple calcified nodules compatible with granulomas. Noncalcified 2.3 mm nodule within the right upper lung most likely representing additional granuloma which is not calcified. This is felt to be present on previous chest CT in retrospect and therefore incidental. 3. Other incidental findings. Nothing acute is appreciated. - Re-Assessments/Exams Free Text/Narrative Re-Assessment/Exam: 10/24/18 12:24 Pt presents to the ED for the evaluation of left sided chest/flank pain after fall x2. CT chest without contrast has been ordered for further evaluation of possible broken ribs with 30mg IM toradol for pain relief to start with. 10/24/18 13:26 CT is done and no acute rib fracture or left upper abdominal abnormality is appreciated. Pt was re-assessed at bedside and the toradol did provide good pain relief, she states her pain is now a 7/10. Pt will be given an Incentive spirometer and has been instructed on it's use. Have recommended NSAID therapy with ice/heat therapy. Departure - Departure Time of Disposition: 13:28 Disposition: Home, Self-Care 01 Condition: Fair Clinical Impression: Rib pain on left side - Discharge Information *PRESCRIPTION DRUG MONITORING PROGRAM REVIEWED*: No *COPY OF PRESCRIPTION DRUG MONITORING REPORT IN PATIENT [place]: No Instructions: Chest Wall Pain, [id number] Referrals: Vinita Wheatley MD [Primary Care Provider] - Forms: ED Department Discharge Additional Instructions: You have been evaluated in the ED for your left sided rib/flank pain Your CT demonstrated no acute rib fracture or left upper abdominal contusions/ injury. It did demonstrate multiple calcified small nodules that were present on comparison with a prior CT. These are compatible with granulomas. Please use ice as tolerated to the affected area. Please use the incentive spirometer 10 times / hour to promote deep breathing and prevent pneumonia. You may take tylenol 500 mg / ibuprofen 600mg q6 hrs for pain relief. Please do so until you have a tolerable level of pain with activity. Do not exceed 4000mg tylenol in one day. Do not exceed 3200mg ibuprofen in one day. You may use aleve 2 tabs every 12 hours as needed for pain if you should desire to use aleve. Please return to ED if your symptoms should change or worsen. - My Orders Last 24 Hours: My Active Orders 10/24/18 13:32 Incentive Spirometry [RT Incentive Spirometry] [RC] Q1HWA - Assessment/Plan Last 24 Hours: My Active Orders 10/24/18 13:32 Incentive Spirometry [RT Incentive Spirometry] [RC] Q1HWA
--- NOTE | 2018-10-24 13:12 | CT ---
CT chest Technique: Multiple axial sections through the chest were obtained. Intravenous contrast was not utilized. Comparison: Prior chest CT of 03/26/17. Findings: Small portion of the visualized upper abdominal structures appear within normal limits. No pericardial thickening is seen. Mild coronary artery calcification is noted. Atherosclerotic calcification is seen within the thoracic aorta. No mediastinal adenopathy is seen. No hilar abnormalities are appreciated. Slight apical blebs are seen. Small nodule is identified within the anterior right upper lung measuring about 2.3 mm in size. This is believed to be present on previous CT study in retrospect and is felt to be stable. Calcified nodule is noted within the right lung base compatible with granuloma measuring 4.5 mm which is stable. Additional calcified nodule is noted within the left lung base measuring 6 mm. 2 calcified nodules are noted within the superior segment of the left lower lung measuring 4 mm and 3 mm. No additional nodule is seen. Lungs otherwise are clear. No pulmonary contusion or pleural effusions are seen. No pneumothorax is seen. Bone window settings were reviewed in bone window setting shows no discrete acute rib fracture. Minimal rib deformity is seen within several ribs on both sides compatible with old healed fractures. Scattered degenerative change within the thoracic spine is seen. Nothing acute is seen within the thoracic spine. Impression: 1. Findings compatible with scattered old healed rib fractures. No acute rib fracture is seen. 2. Multiple calcified nodules compatible with granulomas. Noncalcified 2.3 mm nodule within the right upper lung most likely representing additional granuloma which is not calcified. This is felt to be present on previous chest CT in retrospect and therefore incidental. 3. Other incidental findings. Nothing acute is appreciated. Diagnostic code #2
== END 2018-10-24 14:00 | disposition home or self-care (01) ==
LOC: JD.ED 11:42
DX: R07.81 Pleurodynia (principal); E78.00 Pure hypercholesterolemia, unspecified; I10 Essential (primary) hypertension; J44.9 Chronic obstructive pulmonary disease, unspecified; F32.9 Major depressive disorder, single episode, unspecified; F17.210 Nicotine dependence, cigarettes, uncomplicated; Z91.018 Allergy to other foods; Z88.8 Allergy status to other drugs, medicaments and biological substances; Z79.82 Long term (current) use of aspirin; Z79.899 Other long term (current) drug therapy
CPT/HCPCS: 71250; 96372; 99284; J1885; 99283

== ENCOUNTER 2019-10-07 13:27 | Emergency (ER) | payer MEDICARE, OTHER ==
[2019-10-07 14:20] VITALS: BP 167/87; PULSE 124
[2019-10-07] MEDS ORDERED: Sodium Chloride 0.9% 1,000 ML IV ONE (14:24)
[2019-10-07] MEDS ORDERED: Ondansetron 4 MG/2 ML SDV IVPUSH ONE (14:24)
[2019-10-07] MEDS ORDERED: Sodium Chloride 0.9% 10 ML Syringe FLUSH PRN (14:24)
--- NOTE | 2019-10-07 14:26 | EDM.PDOC ---
ED HPI GENERAL MEDICAL PROBLEM - General Chief Complaint: Gastrointestinal Problem Stated Complaint: FEVER AND BURPING X 4 DAYS Time Seen by Provider: 10/07/19 14:18 Source of Information: Reports: Patient, Family History Limitations: Reports: No Limitations - History of Present Illness INITIAL COMMENTS - FREE TEXT/NARRATIVE: Patient's unfortunate 74-year-old female who presents to emergency Department today with complaint of nausea vomiting diarrhea. Patient ports that symptoms started 3 days ago and progressively worsened since. Patient reports that she has no pain no fever no chills, and emesis no hematochezia and no melena. Patient reports she is unable to keep any food down however she has been able tolerate some fluids. Patient reports that she started new medication 2 weeks ago for tremor but then stopped because it upset her stomach she does not know the name of this medication - Related Data Allergies Allergy/AdvReac Type Severity Reaction Status Date / Time banana Allergy Anaphylactic Verified 10/07/19 14:20 Shock coconut Allergy Anaphylactic Verified 10/07/19 14:20 Shock minocycline [From Minocin] Allergy Rash Verified 10/07/19 14:20 pregabalin [From Lyrica] Allergy Rash Verified 10/07/19 14:20 rosuvastatin Allergy Cannot Verified 10/07/19 14:20 Remember Home Meds: Home Meds Aspirin 81 mg PO DAILY 03/26/17 [History] Gabapentin [Neurontin] 900 mg PO BEDTIME 12/23/17 [History] Ibuprofen 200 mg PO ASDIRECTED PRN 12/23/17 [History] Melatonin 3 mg PO BEDTIME PRN 12/23/17 [History] OLANZapine [ZyPREXA] 5 mg PO BEDTIME 12/23/17 [History] Folic Acid 1 mg PO DAILY 10/24/18 [History] Lisinopril 5 mg PO DAILY 10/24/18 [History] Simvastatin 10 mg PO DAILY 10/24/18 [History] clonazePAM [Clonazepam] 1 mg PO BEDTIME PRN 10/24/18 [History] Cephalexin [Keflex] 500 mg PO QID #28 capsule 10/07/19 [Rx] Ondansetron [Zofran ODT] 4 mg PO TID #8 tab.dis 10/07/19 [Rx] Potassium Chloride [Klor-Con 10] 10 meq PO DAILY #4 tab.er 10/07/19 [Rx] Past Medical History HEENT History: 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 Cardiovascular History: Reports: High Cholesterol, Hypertension Other Cardiovascular History: palpitations Respiratory History: Reports: COPD Gastrointestinal History: Reports: Colon Polyp Other Gastrointestinal History: hematochezia, rectal bleeding, gastroenteritis Genitourinary History: Reports: Acute Renal Failure, Urinary Incontinence Other Genitourinary History: acute kidney injury 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 Musculoskeletal History: Reports: Arthritis Other Musculoskeletal History: 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, chronic pain Neurological History: Reports: Neuropathy, Peripheral, Parkinson's Other Neuro History: syncope, parkinsons tremor, lumbar back surgery, c5-c7 fusion Psychiatric History: Reports: Depression, Other (See Below) Endocrine/Metabolic History: Reports: Osteopenia, Vitamin D Deficiency Other Endocrine/Metabolic History: vitamin b deficiency Hematologic History: Reports: Anemia Other Hematologic History: vitamin d deficiency Immunologic History: 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 Oncologic (Cancer) History: Reports: Uterine Dermatologic History: 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 - Past Surgical History Head Surgeries/Procedures: 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 HEENT Surgical History: Reports: Cataract Surgery, Oral Surgery Respiratory Surgical History: 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 GI Surgical History: Reports: Appendectomy, Colonoscopy, EGD Female Surgical History: Reports: D&C, Hysterectomy, Salpingo-Oophorectomy Neurological Surgical History: Reports: C-Spine, Lumbar Spine Dermatological Surgical History: 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 Social & Family History - Caffeine Use Caffeine Use: Reports: Coffee - Living Situation & Occupation Living situation: Reports: , with Family (Daughter) Occupation: Retired ED ROS GENERAL - Review of Systems Review Of Systems: See Below Constitutional: Denies: Fever, Chills GI/Abdominal: Reports: Diarrhea, Nausea, Vomiting. Denies: Abdominal Pain, Hematemesis, Hematochezia, Melena ED EXAM, GI/ABD - Physical Exam Exam: See Below Exam Limited By: No Limitations General Appearance: Alert, WD/WN, Mild Distress Nose: Normal Inspection, Normal Mucosa, No Blood Throat/Mouth: Normal Inspection, Normal Lips, Normal Teeth, Normal Gums, Normal Oropharynx, Normal Voice, No Airway Compromise Head: Atraumatic, Normocephalic Neck: Normal Inspection, Supple, Non-Tender, Full Range of Motion Respiratory/Chest: No Respiratory Distress, Lungs Clear, Normal Breath Sounds, No Accessory Muscle Use, Chest Non-Tender Cardiovascular: Normal Peripheral Pulses, Regular Rate, Rhythm, No Edema, No Gallop, No JVD, No Murmur, No Rub GI/Abdominal Exam: Normal Bowel Sounds, Soft, Non-Tender, No Organomegaly, No Distention, No Abnormal Bruit, No Mass, Pelvis Stable Neurological: Alert, Oriented Skin Exam: Warm, Dry, Other (Tenting 2+) EKG INTERPRETATION EKG Date: 10/07/19 Time: 14:57 Rhythm: Other (ST) [place]: Normal P-Wave: Present QRS: Normal ST-T: Normal QT: Normal EKG Interpretation Comments: No acute ischemic changes Course - Vital Signs Last Recorded V/S: Last Vital Signs Temp 99.7 F 10/07/19 14:16 Pulse 124 H 10/07/19 14:16 Resp 20 10/07/19 14:16 BP 167/87 H 10/07/19 14:16 Pulse Ox 95 10/07/19 14:16 - Orders/Labs/Meds Orders: Active Orders 24 hr Category Date Time Status EKG Documentation Completion [RC] ASDIRECTED Care 10/07/19 14:24 Active CULTURE URINE [RM] Stat Lab 10/07/19 16:43 Received Sodium Chloride 0.9% [Saline Flush] Med 10/07/19 14:24 Active 10 ml FLUSH ASDIRECTED PRN Saline Lock Insert [OM.PC] Stat Oth 10/07/19 14:24 Ordered EKG 12 Lead [EK] Stat Ther 10/07/19 14:24 Ordered Medication Orders Sodium Chloride (Saline Flush) 10 ml FLUSH ASDIRECTED PRN PRN Reason: Keep Vein Open Last Admin: 10/07/19 15:27 Dose: 10 ml Labs: Laboratory Tests 10/07/19 10/07/19 10/07/19 Range/Units 15:09 15:09 16:43 WBC 8.71 (3.98-10.04) K/mm3 RBC 4.73 (3.98-5.22) M/mm3 Hgb 15.6 D (11.2-15.7) gm/dl Hct 44.2 (34.1-44.9) % MCV 93.4 D (79.4-94.8) fl MCH 33.0 H (25.6-32.2) pg MCHC 35.3 (32.2-35.5) g/dl RDW Std Deviation 48.1 H (36.4-46.3) fL Plt Count 168 L D (182-369) K/mm3 MPV 10.5 (9.4-12.3) fl Neut % (Auto) 75.0 H (34.0-71.1) % Lymph % (Auto) 14.7 L (19.3-51.7) % [place] % (Auto) 9.1 (4.7-12.5) % Eos % (Auto) 0.9 (0.7-5.8) Baso % (Auto) 0.1 (0.1-1.2) % Neut # (Auto) 6.53 H (1.56-6.13) K/mm3 Lymph # (Auto) 1.28 (1.18-3.74) K/mm3 [place] # (Auto) 0.79 H (0.24-0.36) K/mm3 Eos # (Auto) 0.08 (0.04-0.36) K/mm3 Baso # (Auto) 0.01 (0.01-0.08) K/mm3 Sodium 126 L (136-145) mEq/L Potassium 2.7 L (3.5-5.1) mEq/L Chloride 86 L (98-107) mEq/L Carbon Dioxide 27 (21-32) mEq/L Anion Gap 15.7 H (5-15) BUN 6 L (7-18) mg/dL Creatinine 0.6 (0.55-1.02) mg/dL Est Cr Clr Drug Dosing TNP Estimated GFR (MDRD) > 60 (>60) mL/min BUN/Creatinine Ratio 10.0 L (14-18) Glucose 103 (83-115) mg/dL Calcium 9.1 (8.5-10.1) mg/dL Total Bilirubin 1.0 (0.2-1.0) mg/dL AST 22 (15-37) U/L ALT 11 L (14-59) U/L Alkaline Phosphatase 106 (46-116) U/L Troponin I < 0.017 (0.00-0.056) ng/mL Total Protein 7.5 (6.4-8.2) g/dl Albumin 3.4 (3.4-5.0) g/dl Globulin 4.1 gm/dL Albumin/Globulin Ratio 0.8 L (1-2) Lipase 96 (73-393) U/L Urine Color Yellow (Yellow) Urine Appearance Clear (Clear) Urine pH 7.0 (5.0-8.0) Ur Specific [place] 1.020 (1.005-1.030) Urine Protein 2+ H (Negative) Urine Glucose (UA) Negative (Negative) Urine Ketones 3+ H (Negative) Urine Occult Blood Negative (Negative) Urine Nitrite Positive H (Negative) Urine Bilirubin Negative (Negative) Urine Urobilinogen 1.0 (0.2-1.0) Ur Leukocyte Esterase 1+ H (Negative) Urine RBC 5-10 H (0-5) /hpf Urine WBC 5-10 H (0-5) /hpf Ur Squamous Epith Cells 20-30 H (0-5) /hpf Urine Bacteria Moderate H (FEW) /hpf Hyaline Casts 0-5 (0-5) /lpf Urine Mucus Moderate H (FEW) /hpf Meds: Medications Generic Name Dose Route Start Last Admin Trade Name Fresanjay PRN Reason Stop Dose Admin Sodium Chloride 10 ml 10/07/19 14:24 10/07/19 15:27 Saline Flush FLUSH 10 ml ASDIRECTED PRN Administration Keep Vein Open Discontinued Medications Generic Name Dose Route Start Last Admin Trade Name Freq PRN Reason Stop Dose Admin Sodium Chloride 1,000 mls @ 1,000 mls/hr 10/07/19 14:24 10/07/19 15:27 Normal Saline IV 10/07/19 15:23 1,000 mls/hr ONETIME ONE Administration Ondansetron HCl 4 mg 10/07/19 14:24 10/07/19 15:27 Zofran IVPUSH 10/07/19 14:25 4 mg ONETIME ONE Administration Potassium Chloride 40 meq 10/07/19 16:04 10/07/19 16:35 Klor-Con M20 PO 10/07/19 16:05 40 meq ONETIME ONE Administration - Re-Assessments/Exams Free Text/Narrative Re-Assessment/Exam: 10/07/19 17:13 Patient had a sodium 126, potassium 2.7, chloride 86, urine showed positive UTI on patient reports she feels better we will discharge to home on oral potassium oral Keflex and have patient return for any worsening condition Departure - Departure Time of Disposition: 17:13 Disposition: Home, Self-Care 01 Clinical Impression: Vomiting, Diarrhea, Hypokalemia, Hyponatremia, UTI, Urinary tract infectious disease - Discharge Information Prescriptions: Cephalexin [Keflex] 500 mg PO QID #28 capsule Ondansetron [Zofran ODT] 4 mg PO TID #8 tab.dis Potassium Chloride [Klor-Con 10] 10 meq PO DAILY #4 tab.er Instructions: Nausea and Vomiting, Adult, [id number], Dehydration, Elderly, [id number], Urinary Tract Infection, Adult Referrals: Vinita Wheatley MD [Primary Care Provider] - Forms: ED Department Discharge Additional Instructions: Home, rest, adequate fluids, return as needed for worsening condition Sepsis Event Note - Evaluation Sepsis Screening Result: No Definite Risk - Focused Exam Vital Signs: Vital Signs Temp Pulse Resp BP Pulse Ox 10/07/19 14:16 99.7 F 124 H 20 167/87 H 95 Date Exam was Performed: 10/07/19 Time Exam was Performed: 17:13 - My Orders Last 24 Hours: My Active Orders 10/07/19 14:24 EKG Documentation Completion [RC] ASDIRECTED Sodium Chloride 0.9% [Saline Flush] 10 ml FLUSH ASDIRECTED PRN Saline Lock Insert [OM.PC] Stat EKG 12 Lead [EK] Stat 10/07/19 16:43 CULTURE URINE [RM] Stat - Assessment/Plan Last 24 Hours: My Active Orders 10/07/19 14:24 EKG Documentation Completion [RC] ASDIRECTED Sodium Chloride 0.9% [Saline Flush] 10 ml FLUSH ASDIRECTED PRN Saline Lock Insert [OM.PC] Stat EKG 12 Lead [EK] Stat 10/07/19 16:43 CULTURE URINE [RM] Stat
[2019-10-07] MEDS ORDERED: Potassium Chloride 20 MEQ Tab.ER PO ONE (16:04)
[2019-10-07] MEDS ORDERED: cefTRIAXone 1 GM in Sodium Chloride 0.9% 100 ML IV ONE (17:17)
== END 2019-10-07 18:07 | disposition home or self-care (01) ==
LOC: JD.ED 13:27
DX: R11.2 Nausea with vomiting, unspecified (principal); R19.7 Diarrhea, unspecified; N39.0 Urinary tract infection, site not specified; B96.89 Other specified bacterial agents as the cause of diseases classified elsewhere; E87.6 Hypokalemia; E87.1 Hypo-osmolality and hyponatremia; Z91.018 Allergy to other foods; Z88.8 Allergy status to other drugs, medicaments and biological substances; Z79.82 Long term (current) use of aspirin; Z79.899 Other long term (current) drug therapy; I10 Essential (primary) hypertension; J44.9 Chronic obstructive pulmonary disease, unspecified
CPT/HCPCS: 36415; 80053; 81001; 83690; 84484; 85025; 87086; 93005; 96361; 96365; 96375; 99284; A9270; J0696; J2405; J7030; J7050; 93010